=== PATIENT | female | born 1950 | race African-American/Black ===

== ENCOUNTER → 2021-07-15 | Day surgery (SDC) | payer MEDICARE, OTHER ==
[2021-07-13 10:38] LABS: Basophils # (auto) 0.1 10 ^3/uL (0-0.2); Eosinophils # (auto) 0.1 10 ^3/uL (0-0.8); Eosinophils % (auto) 2.2 % (0.0-7.0); Lymphocytes # (auto) 2.8 10 ^3/uL (0.4-5.4); Mean Corpuscular Hemoglobin 26.5 pg (28.0-32.0); Mean Corpuscular Hgb Conc. 32.1 g/dL (32.0-36.0); Monocytes # (auto) 0.3 10 ^3/uL (0-1.3); Red Cell Distribution Width 16.5 % (11.8-14.3)
[2021-07-13 10:41] LABS: Basophils % (auto) 1.2 % (0.0-2.0); Hematocrit 37.1 % (36.0-46.0); Hemoglobin 11.9 g/dL (12.2-16.2); Lymphocytes % (auto) 53.9 % (10.0-50.0); Mean Corpuscular Volume 82.6 fL (80.0-100.0); Neutrophils % (auto) 37.7 % (37.0-80.0); Nucleated Red Blood Cells % 0.2 %; Red Blood Cells 4.49 10^6/uL (4.0-5.20); White Blood Cell 5.2 10^3/uL (4.4-10.8)
[2021-07-13 10:56] LABS: Potassium 3.6 mmol/L (3.5-5.1)
[2021-07-13 11:07] LABS: Albumin 3.4 g/dL (3.4-5.0); BUN/Creatinine Ratio 19.8; Bilirubin, Total 0.8 mg/dL (0.2-1.0); Total Protein 7.5 g/dL (6.4-8.2)
[~2021-07-15] MED LIST: ACYC-161 PO; ALBUAER3 IN; ALL300T PO; ATOR40TA52 PO; BIOT1SUB SL; BUDE160A3 INH; FLU05NSL; FLUT250M2 IN; GINK500C PO; IBUP800T27 PO; LEV100T PO; LOSA25TA38 PO; MELA3TAB27 PO; MONT-8 OR; NITR0.4S29 SL; OMEP20TA PO; RIVA2.5T PO; TRIA37.56 PO; ZINC50TA7 PO
[2021-07-15] MEDS: fentaNYL CITRATE 100 MCG/2 ML VL ONE ×3 (13:34→13:42)
[2021-07-15] MEDS: diphenhdrAMINE HCL 50 MG/1 ML VL ONE ×2 (13:34→13:37)
[2021-07-15] MEDS: MIDAZOLAM HCL 5 MG/ML-1ML VIAL ONE ×3 (13:34→13:42)
[2021-07-15 14:25] VITALS: BP 132/86
== END | disposition home or self-care (01) ==
LOC: GI 12:01
PROVIDERS: ATTEND Internal Medicine Gastroenterology
DX: R10.32 Left lower quadrant pain (principal); K57.30 Diverticulosis of large intestine without perforation or abscess without bleeding; K64.8 Other hemorrhoids; K52.9 Noninfective gastroenteritis and colitis, unspecified; K63.89 Other specified diseases of intestine; I10 Essential (primary) hypertension; E78.5 Hyperlipidemia, unspecified; M10.9 Gout, unspecified; E11.9 Type 2 diabetes mellitus without complications; Z20.822 Contact with and (suspected) exposure to COVID-19; Z86.2 Personal history of diseases of the blood and blood-forming organs and certain disorders involving the immune mechanism; Z95.0 Presence of cardiac pacemaker; Z86.010 Personal history of colon polyps
CPT/HCPCS: 36415; 45380; 80053; 85025; 88305; J1200; J2250; J3010; J7030; U0003; G0500

== ENCOUNTER → 2021-08-04 | Outpatient (CLI) | payer MEDICARE, OTHER | END | disposition home or self-care (01) | LOC: LAB 09:49 | PROVIDERS: ATTEND Internal Medicine Gastroenterology | DX: R10.32 Left lower quadrant pain (principal); R11.0 Nausea | CPT/HCPCS: 36415; 82565; 84520 ==

== ENCOUNTER → 2021-10-15 | Outpatient (CLI) | payer MEDICARE, OTHER, BC | END | disposition home or self-care (01) | LOC: Rad HDHVI 13:58 | PROVIDERS: ATTEND Internal Medicine Cardiovascular Disease | DX: R00.2 Palpitations (principal); R07.89 Other chest pain | CPT/HCPCS: 93306 ==

== ENCOUNTER 2023-04-13 12:30 | Day surgery (SDC) | payer MEDICARE, OTHER ==
[2023-04-11 11:05] LABS: Basophils # (auto) 0.1 10 ^3/uL (0-0.2); Eosinophils # (auto) 0.1 10 ^3/uL (0-0.8); Hemoglobin 10.5 g/dL (12.2-16.2); Lymphocytes # (auto) 2.9 10 ^3/uL (0.4-5.4); Monocytes # (auto) 0.3 10 ^3/uL (0-1.3); Nucleated Red Blood Cells % 0.1 %
[2023-04-11 11:07] LABS: Basophils % (auto) 0.8 % (0.0-2.0); Hematocrit 33.6 % (36.0-46.0); Lymphocytes % (auto) 35.5 % (10.0-50.0); Mean Corpuscular Hemoglobin 23.8 pg (28.0-32.0); Mean Corpuscular Hgb Conc. 31.2 g/dL (32.0-36.0); Mean Corpuscular Volume 76.2 fL (80.0-100.0); Neutrophils # (auto) 4.7 10 ^3/uL (1.6-8.6); Neutrophils % (auto) 58.7 % (37.0-80.0); Red Blood Cells 4.41 10^6/uL (4.0-5.20)
[2023-04-11 11:47] LABS: Alanine Aminotransferase 15 U/L (7-40); Alkaline Phosphatase 77 U/L (46-116); Anion Gap 6 (5-15); Calcium 9.2 mg/dL (8.7-10.4); Carbon Dioxide 28 mmol/L (20-30); Chloride 103 mmol/L (98-107); Potassium 3.6 mmol/L (3.5-5.1); Sodium 137 mmol/L (136-145)
[2023-04-11 11:48] LABS: Albumin 4.2 g/dL (3.2-4.8); Aspartate Aminotransferase 16 U/L (13-40); BUN/Creatinine Ratio 18.4 (10.0-20.0); Blood Urea Nitrogen 21 mg/dL (9-23); Glucose 94 mg/dL (74-106)
[2023-04-11 11:50] LABS: Bilirubin, Total 0.9 mg/dL (0.2-1.0); Total Protein 7.5 g/dL (5.7-8.2)
[2023-04-11 12:03] LABS: INR 1.03 (0.9-1.15); Partial Thromboplastin Time 27.6 SEC (24.5-34.5); Prothrombin Time 10.8 sec (9.3-11.8)
[~2023-04-13] VITALS: Ht 172.7 cm; Wt 86.2 kg
[~2023-04-13 12:30] MED LIST changes: -ACYC-161 PO; +ACYC400T16 PO; -BUDE160A3 INH; +CHOL200064 PO; -FLU05NSL; +IBUP-1456 PO; -IBUP800T27 PO; +LATA0.008 OP; -LOSA25TA38 PO; +MAGN400T40 OR; -RIVA2.5T PO; +RIVA20TA PO; +THIA100T10 PO; -TRIA37.56 PO; +TRIA37.587 PO; +VITATAB20 OR
[2023-04-13] MEDS ORDERED: LIDOCAINE VISCOUS 2% 15ML UD ONE (12:34)
[2023-04-13] MEDS ORDERED: SODIUM CHLORIDE LOCK 10 ML ONE (12:34)
[2023-04-13] MEDS: diphenhdrAMINE HCL 50 MG/1 ML VL ONE ×2 (14:09→14:10)
[2023-04-13] MEDS: fentaNYL CITRATE 100 MCG/2 ML VL ONE ×2 (14:09→14:12)
[2023-04-13] MEDS: MIDAZOLAM HCL 5 MG/ML-1ML VIAL ONE ×2 (14:09→14:12)
[2023-04-13 14:21] VITALS: TEMP 97.6; O2SAT 100
[2023-04-13 14:51] VITALS: BP 117/67; PULSE 87; RESP 14; O2SAT 100
== END 2023-04-13 14:55 | disposition home or self-care (01) ==
LOC: GI 12:30
PROVIDERS: ATTEND Internal Medicine Gastroenterology
DX: K21.9 Gastro-esophageal reflux disease without esophagitis (principal); D64.9 Anemia, unspecified; K25.9 Gastric ulcer, unspecified as acute or chronic, without hemorrhage or perforation; K29.50 Unspecified chronic gastritis without bleeding
CPT/HCPCS: 36415; 43239; 80053; 85025; 85610; 85730; J1200; J2250; J3010; J7030

== ENCOUNTER → 2023-12-09 | Outpatient (CLI) | payer MEDICARE, OTHER ==
[2023-12-09 12:30] VITALS: BP 121/72; PULSE 79; RESP 16; O2SAT 99
[2023-12-09] MEDS: SODIUM CHLORIDE 0.9% 500 ML IV ONE (12:45)
[2023-12-09] MEDS: PATIENTS OWN MEDICATION (FERRLECIT 125 MG) IV ONE (12:45)
[2023-12-09] MEDS: SODIUM FERRIC GLUC CPLEX 62.5MG/5ML VIAL IV ONE (12:58)
[2023-12-09 14:15] VITALS: BP 128/69; PULSE 80; RESP 16; O2SAT 99
== END | disposition home or self-care (01) ==
LOC: CHF HDHVI 12:50
PROVIDERS: ATTEND Internal Medicine Cardiovascular Disease
DX: D64.9 Anemia, unspecified (principal); E86.0 Dehydration; R53.83 Other fatigue; K21.9 Gastro-esophageal reflux disease without esophagitis
CPT/HCPCS: 96365; G0463; J2916; J7040; 96361

== ENCOUNTER → 2023-12-12 | Outpatient (CLI) | payer MEDICARE, OTHER ==
[~2023-12-12] VITALS: Ht 30.5 cm; Wt 0.5 kg
[~2023-12-12] MED LIST changes: +SODIUM FERR GLUC 125 MG/in NS 100 ML IVPB KIT IV ONE
[2023-12-12] MEDS: SODIUM FERRIC GLUC CPLEX 62.5MG/5ML VIAL IV ONE ×2 (09:39→11:06)
[2023-12-12 09:40] VITALS: BP 110/48; PULSE 79; RESP 16; O2SAT 97
[2023-12-12 10:50] VITALS: BP 113/85; PULSE 84; RESP 16; O2SAT 97
== END | disposition home or self-care (01) ==
LOC: CHF HDHVI 09:33
PROVIDERS: ATTEND Internal Medicine Cardiovascular Disease
DX: D64.9 Anemia, unspecified (principal); K21.9 Gastro-esophageal reflux disease without esophagitis
CPT/HCPCS: 96365; G0463; J2916

== ENCOUNTER → 2023-12-14 | Outpatient (CLI) | payer MEDICARE, OTHER ==
[~2023-12-14] MED LIST changes: -SODIUM FERR GLUC 125 MG/in NS 100 ML IVPB KIT IV ONE
[2023-12-14 08:30] VITALS: BP 119/54; PULSE 74; RESP 16; O2SAT 97
[2023-12-14] MEDS: SODIUM FERRIC GLUC CPLEX 62.5MG/5ML VIAL IV ONE (08:36)
[2023-12-14] MEDS: SODIUM FERR GLUC 125 MG/in NS 100 ML IVPB KIT IV ONE (08:38)
[2023-12-14 09:40] VITALS: BP 119/55; PULSE 75; RESP 16; O2SAT 97
== END | disposition home or self-care (01) ==
LOC: CHF HDHVI 08:28
PROVIDERS: ATTEND Internal Medicine Cardiovascular Disease
DX: D50.9 Iron deficiency anemia, unspecified (principal); K21.9 Gastro-esophageal reflux disease without esophagitis
CPT/HCPCS: 96365; G0463; J2916

== ENCOUNTER → 2024-01-11 | Outpatient (CLI) | payer MEDICARE, OTHER ==
[2024-01-11 11:17] VITALS: BP 137/74; PULSE 76; RESP 16; O2SAT 97
[2024-01-11] MEDS: SODIUM FERRIC GLUC CPLEX 62.5MG/5ML VIAL IV ONE (11:24)
[2024-01-11] MEDS: PATIENTS OWN MEDICATION (FERRLECIT 125 MG) IV ONE (11:38)
[2024-01-11 12:52] VITALS: BP 136/68; PULSE 83; RESP 18; O2SAT 97
== END | disposition home or self-care (01) ==
LOC: CHF HDHVI 11:14
PROVIDERS: ATTEND Internal Medicine Cardiovascular Disease
DX: D50.9 Iron deficiency anemia, unspecified (principal); K21.9 Gastro-esophageal reflux disease without esophagitis; R53.83 Other fatigue; E86.0 Dehydration
CPT/HCPCS: 96365; G0463; J2916

== ENCOUNTER → 2024-01-13 | Outpatient (CLI) | payer MEDICARE, OTHER ==
[~2024-01-13] MED LIST changes: +PATIENTS OWN MEDICATION (FERRLECIT 125 MG) IV ONE
[2024-01-13 09:02] VITALS: BP 109/55; PULSE 82; RESP 16; O2SAT 94
[2024-01-13] MEDS: SODIUM FERRIC GLUC CPLEX 62.5MG/5ML VIAL IV ONE (09:02)
[2024-01-13 10:05] VITALS: BP 106/55; PULSE 75; RESP 16; O2SAT 94
[2024-01-13] MEDS: SODIUM FERR GLUC 62.5MG/5ML 110 ML IV ONE (13:19)
== END | disposition home or self-care (01) ==
LOC: CHF HDHVI 08:59
PROVIDERS: ATTEND Internal Medicine Cardiovascular Disease
DX: D50.9 Iron deficiency anemia, unspecified (principal); R53.83 Other fatigue; K21.9 Gastro-esophageal reflux disease without esophagitis
CPT/HCPCS: 96365; G0463; J2916

== ENCOUNTER → 2024-01-25 | Outpatient (CLI) | payer MEDICARE, OTHER ==
[~2024-01-25] MED LIST changes: -GINK500C PO; -LEV100T PO; +LEVO-849 PO; -PATIENTS OWN MEDICATION (FERRLECIT 125 MG) IV ONE; +[UNRECOGNIZED DRUG - CODE] PO
[2024-01-25 11:08] VITALS: BP 121/69; PULSE 79; RESP 18; O2SAT 97
[2024-01-25] MEDS: SODIUM FERRIC GLUC CPLEX 62.5MG/5ML VIAL IV ONE ×2 (11:14→11:44)
[2024-01-25 12:30] VITALS: BP 121/69; PULSE 79; RESP 18; O2SAT 97
== END | disposition home or self-care (01) ==
LOC: CHF HDHVI 11:08
PROVIDERS: ATTEND Internal Medicine Cardiovascular Disease
DX: D50.9 Iron deficiency anemia, unspecified (principal); K21.9 Gastro-esophageal reflux disease without esophagitis
CPT/HCPCS: 96365; G0463; J2916

== ENCOUNTER → 2024-01-30 | Outpatient (CLI) | payer MEDICARE, OTHER ==
[2024-01-30 11:05] VITALS: BP 106/66; PULSE 81; RESP 18; O2SAT 97
[2024-01-30] MEDS: SODIUM FERRIC GLUC CPLEX 62.5MG/5ML VIAL IV ONE ×2 (11:33→12:15)
[2024-01-30] MEDS: ACETAMINOPHEN 500 MG TAB PO ONE ×2 (11:53→11:55)
[2024-01-30 12:30] VITALS: BP 110/70; PULSE 80; RESP 17; O2SAT 97
== END | disposition home or self-care (01) ==
LOC: CHF HDHVI 10:57
PROVIDERS: ATTEND Internal Medicine Cardiovascular Disease
DX: D50.9 Iron deficiency anemia, unspecified (principal); K21.9 Gastro-esophageal reflux disease without esophagitis
CPT/HCPCS: 96365; G0463; J2916

== ENCOUNTER → 2024-02-24 | Outpatient (CLI) | payer MEDICARE, OTHER ==
[2024-02-24 11:33] VITALS: BP 114/67; PULSE 88; RESP 16
[2024-02-24] MEDS: SODIUM FERRIC GLUC CPLEX 62.5MG/5ML VIAL IV ONE ×2 (11:40→13:25)
[2024-02-24 12:48] VITALS: BP 114/65; PULSE 82; RESP 16; O2SAT 97
== END | disposition home or self-care (01) ==
LOC: CHF HDHVI 11:32
PROVIDERS: ATTEND Internal Medicine Cardiovascular Disease
DX: D64.9 Anemia, unspecified (principal); K21.9 Gastro-esophageal reflux disease without esophagitis
CPT/HCPCS: 96365; G0463; J2916

== ENCOUNTER → 2024-03-05 | Outpatient (CLI) | payer MEDICARE, OTHER ==
[2024-03-05 13:48] VITALS: BP 133/63; PULSE 80; RESP 18; O2SAT 96
[2024-03-05] MEDS: SODIUM FERRIC GLUC CPLEX 62.5MG/5ML VIAL IV ONE (14:11)
[2024-03-05 15:17] VITALS: BP 116/60; PULSE 78; RESP 18; O2SAT 98
[2024-03-05] MEDS: SODIUM FERR GLUC 125 MG/in NS 100 ML IVPB KIT IV ONE (15:43)
== END | disposition home or self-care (01) ==
LOC: CHF HDHVI 13:45
PROVIDERS: ATTEND Internal Medicine Cardiovascular Disease
DX: D50.9 Iron deficiency anemia, unspecified (principal); K21.9 Gastro-esophageal reflux disease without esophagitis; R53.83 Other fatigue
CPT/HCPCS: 96365; G0463; J2916

== ENCOUNTER → 2024-03-16 | Day surgery (SDC) | payer MEDICARE, OTHER ==
[2024-03-14 11:43] LABS: INR 1.02 (0.9-1.15); Partial Thromboplastin Time 25.6 SEC (24.5-34.5); Prothrombin Time 10.8 sec (9.3-11.8)
[2024-03-14 11:47] LABS: Alanine Aminotransferase 23 U/L (7-40); Albumin 4.4 g/dL (3.2-4.8); Alkaline Phosphatase 59 U/L (46-116); Anion Gap 6 (5-15); Aspartate Aminotransferase 20 U/L (13-40); BUN/Creatinine Ratio 20.2 (10.0-20.0); Bilirubin, Total 0.7 mg/dL (0.2-1.0); Blood Urea Nitrogen 20 mg/dL (9-23); Calcium 10.2 mg/dL (8.7-10.4); Carbon Dioxide 30 mmol/L (20-31); Chloride 105 mmol/L (98-107); Glucose 92 mg/dL (74-106); Potassium 3.9 mmol/L (3.5-5.1); Sodium 141 mmol/L (136-145); Total Protein 7.6 g/dL (5.7-8.2)
[2024-03-14 11:53] LABS: Basophils # (auto) 0.1 10 ^3/uL (0-0.2); Eosinophils # (auto) 0.1 10 ^3/uL (0-0.8); Eosinophils % (auto) 1.7 % (0.0-7.0); Lymphocytes # (auto) 2.7 10 ^3/uL (0.4-5.4); Monocytes # (auto) 0.3 10 ^3/uL (0-1.3)
[2024-03-14 11:55] LABS: Hematocrit 42.2 % (36.0-46.0); Hemoglobin 13.6 g/dL (12.2-16.2); Lymphocytes % (auto) 44.2 % (10.0-50.0); Mean Corpuscular Hemoglobin 26.4 pg (28.0-32.0); Mean Corpuscular Hgb Conc. 32.2 g/dL (32.0-36.0); Mean Corpuscular Volume 82.2 fL (80.0-100.0); Monocytes % (auto) 4.8 % (0.0-12.0); Neutrophils # (auto) 2.9 10 ^3/uL (1.6-8.6); Neutrophils % (auto) 48.3 % (37.0-80.0); Nucleated Red Blood Cells % 0.1 %; Platelet Count (auto) 267 10^3/uL (140-450); Red Blood Cells 5.14 10^6/uL (4.0-5.20)
[2024-03-14 12:18] LABS: Red Cell Distribution Width 27.1 % (11.8-14.3)
[2024-03-14 12:57] LABS: Large Platelets FEW; Platelet Estimate Adequa
[~2024-03-16] VITALS: Ht 172.7 cm; Wt 87.1 kg
[~2024-03-16] MED LIST changes: +DICY10CA PO; +SUCR1TAB PO
[2024-03-16 11:28] VITALS: PULSE 77; RESP 18; O2SAT 97
[2024-03-16 11:59] VITALS: RESP 12; TEMP 97.4; O2SAT 98
[2024-03-16 12:46] VITALS: BP 123/75; PULSE 87; RESP 13; O2SAT 98
== END | disposition home or self-care (01) ==
LOC: GI 09:27
PROVIDERS: ATTEND Internal Medicine Gastroenterology
DX: K29.50 Unspecified chronic gastritis without bleeding (principal); K25.9 Gastric ulcer, unspecified as acute or chronic, without hemorrhage or perforation; K29.80 Duodenitis without bleeding; D64.9 Anemia, unspecified; K44.9 Diaphragmatic hernia without obstruction or gangrene; K21.00 Gastro-esophageal reflux disease with esophagitis, without bleeding; J45.909 Unspecified asthma, uncomplicated; I10 Essential (primary) hypertension; E03.9 Hypothyroidism, unspecified; I48.91 Unspecified atrial fibrillation; E11.9 Type 2 diabetes mellitus without complications; Z98.890 Other specified postprocedural states; Z79.899 Other long term (current) drug therapy; Z87.11 Personal history of peptic ulcer disease; F17.200 Nicotine dependence, unspecified, uncomplicated; Z79.84 Long term (current) use of oral hypoglycemic drugs; Z95.0 Presence of cardiac pacemaker
CPT/HCPCS: 36415; 43239; 80053; 82962; 85025; 85610; 85730; 88305; 88312; 88342; J7030; 99152

== ENCOUNTER → 2024-05-16 | Outpatient (CLI) | payer MEDICARE, OTHER ==
--- NOTE | 2024-05-17 12:28 | DVHSR ---
APPROVED REPORT EXAM: Two-dimensional and M-mode echocardiogram with Doppler and color Doppler. Surgery/Intervention Pacemaker: DIMENSIONS LVDd4.4 (3.8-5.7cm)LA (2D)3.8 (1.9-4.0cm)Aortic Root3.3 (2.0-3.7cm) LVDs3.3 (2.5-4.0cm)LA (MM) (1.9-4.0cm)Aortic Cusp Exc1.9 (1.5-2.0cm) EF (%) 46.0 (55-70%)Rt. Atrium3.3 (1.9-4.0cm)Asc. Aorta cm IVSd1.1 (0.7-1.1cm)RV (D) (1.8-2.4cm) PWd1.1 (0.7-1.1cm) Mitral Valve MitralMitral Stenosis E wave0.54m/sMV Mean GR.mmHg A wave0.65m/sMV Peak GR.mmHg E/A ratio0.82D MVAcm2 DECEL [id number] 1/2 [place] Aortic Valve Aortic ValveAortic Stenosis V10.73m/Gama Mean GR.2mmHg V21.14m/Gama Peak GR.5mmHg LVOT Diameter2.1 (1.8-2.4cm)Doppler AVA2.22cm2 Pulmonic Valve V20.99m/s LEFT VENTRICLE The left ventricle is normal size. The left ventricle is normal in structure. The Ejection Fraction is below normal limits. The Ejection Fraction is 45-50%. RIGHT VENTRICLE The right ventricle is normal size. There is a pacemaker lead in the right ventricle. ATRIA The left atrial size is normal. The right atrium size is normal. The interatrial septum is intact with no evidence for an atrial septal defect. MITRAL VALVE The mitral valve is normal in structure. Mitral regurgitation is trace. PULMONIC VALVE The pulmonic valve is not well visualized. TRICUSPID VALVE The tricuspid valve is grossly normal. AORTIC VALVE The aortic valve opens well. The aortic valve is mildly sclerotic. No aortic regurgitation is present. GREAT VESSELS The aortic root is normal size. PERICARDIAL EFFUSION There is no pericardial effusion. Other Information Technically limited study due to body habitus. Conclusion PARADOXICAL SEPTAL WALL MOTION EF 45%
== END | disposition home or self-care (01) ==
LOC: Rad HDHVI 08:47
PROVIDERS: ATTEND Internal Medicine Cardiovascular Disease
DX: I35.1 Nonrheumatic aortic (valve) insufficiency (principal); I11.0 Hypertensive heart disease with heart failure; I50.33 Acute on chronic diastolic (congestive) heart failure; Z95.0 Presence of cardiac pacemaker
CPT/HCPCS: 93306

== ENCOUNTER → 2024-06-15 | Outpatient (CLI) | payer MEDICARE, OTHER ==
[~2024-06-15] VITALS: Ht 174 cm; Wt 88.5 kg
== END | disposition home or self-care (01) ==
LOC: Rad HDHVI 09:30
PROVIDERS: ATTEND Internal Medicine Cardiovascular Disease
DX: I11.0 Hypertensive heart disease with heart failure (principal); I50.43 Acute on chronic combined systolic (congestive) and diastolic (congestive) heart failure; E11.9 Type 2 diabetes mellitus without complications; E78.00 Pure hypercholesterolemia, unspecified; I25.2 Old myocardial infarction; R00.2 Palpitations; R07.89 Other chest pain; I49.5 Sick sinus syndrome; I48.0 Paroxysmal atrial fibrillation; Z95.0 Presence of cardiac pacemaker
CPT/HCPCS: 78452; 93017; 96374; A9500

== ENCOUNTER 2025-04-29 13:53 | Outpatient (CLI) | payer MEDICARE, OTHER ==
[~2025-04-29] VITALS: Ht 174 cm; Wt 86.2 kg
== END 2025-04-29 17:00 | disposition home or self-care (01) ==
LOC: Rad HDHVI 13:53
PROVIDERS: ATTEND Internal Medicine Cardiovascular Disease
DX: I44.30 Unspecified atrioventricular block (principal); I49.3 Ventricular premature depolarization; I11.0 Hypertensive heart disease with heart failure; I50.23 Acute on chronic systolic (congestive) heart failure; I25.10 Atherosclerotic heart disease of native coronary artery without angina pectoris; I48.0 Paroxysmal atrial fibrillation; I49.5 Sick sinus syndrome; I25.2 Old myocardial infarction; R06.02 Shortness of breath; E11.9 Type 2 diabetes mellitus without complications; R07.89 Other chest pain; R00.2 Palpitations; E78.00 Pure hypercholesterolemia, unspecified; Z82.49 Family history of ischemic heart disease and other diseases of the circulatory system; Z95.0 Presence of cardiac pacemaker
CPT/HCPCS: 78452; 93017; A9500; 96374

== ENCOUNTER 2025-04-30 08:50 | Outpatient (CLI) | payer MEDICARE, OTHER | END 2025-04-30 17:00 | disposition home or self-care (01) | LOC: Rad HDHVI 08:50 | PROVIDERS: ATTEND Internal Medicine Cardiovascular Disease | DX: I35.8 Other nonrheumatic aortic valve disorders (principal); I10 Essential (primary) hypertension; I49.5 Sick sinus syndrome; Z95.0 Presence of cardiac pacemaker | CPT/HCPCS: 93306 ==